=== PATIENT | female | born 1955 | race African-American/Black ===

== ENCOUNTER 2022-06-09 09:13 | Observation (INO) ==
[2022-06-09 10:36] LABS: Albumin 3.9 G/DL (3.4-5.0); Bilirubin,Total 0.8 MG/DL (0.20-1.00); Calcium 9.4 MG/DL (8.5-10.1); Osmolality,Calculated 265.2 MOS/KG (273-304); Total Protein 7.8 G/DL (6.4-8.2)
[2022-06-09 10:39] LABS: Potassium 2.3 MMOL/L (3.5-5.1)
[2022-06-09] MEDS ORDERED: POTASSIUM CHLORIDE 20 MEQ TABLET PO STA (11:25)
[2022-06-09] MEDS ORDERED: SODIUM CHLOR 0.9% KCL 20 MEQ 20 MEQ/1,000 ML BAG IV SCH (12:00)
[2022-06-09] MEDS: POTASSIUM CHLORIDE RIDER 10 MEQ/100 ML PREMIX IV SCH ×2 (12:16→14:02)
[2022-06-09 12:24] LABS: Eosinophils % 0.5 % (0.00-10.9); Hematocrit 38.9 VOL% (35.7-47.0); Immature Granulocytes % 0.5 %; Immature Granulocytes Absolute 0.02 #; Lymphocytes # 1.3 10*3/uL (1.4-4.0); Lymphocytes % 31.5 % (21.3-54.2); Mean Corpuscular HGB Conc 33.4 GM/DL (32-36); Mean Corpuscular Volume 90.3 FL (87-102); Monocytes # 0.2 10*3/uL (0.11-0.8); Monocytes % 5.1 % (1.7-12.7); Neutrophils % 61.4 % (38.7-73.9); Platelet Count 327 T/CUMM (130-400); Red Blood Count 4.31 MC/CUMM (3.8-5.5); Red Cell Distribution Width 14.5 % (9.3-17.3); White Blood Count 4.1 T/CUMM (4-12)
[2022-06-09] MEDS ORDERED: MAGNESIUM SULF RIDER 2 GM/50 ML PREMIX IV ONE (12:57)
[2022-06-09] MEDS ORDERED: DOCUSATE SODIUM 100 MG CAPSULE PO PRN (13:20)
[2022-06-09] MEDS ORDERED: hydrALAZINE 20 MG/1 ML VIAL IV PRN (13:20)
[2022-06-09] MEDS ORDERED: GLUCAGON 1 MG VIAL IM PRN (13:20)
[2022-06-09] MEDS ORDERED: DEXTROSE 10% 250 ML BAG IV PRN (13:20)
[2022-06-09] MEDS ORDERED: ONDANSETRON 4 MG/2 ML VIAL IV PRN (13:20)
[2022-06-09] MEDS ORDERED: traZODone 50 MG TABLET PO PRN (13:28)
[2022-06-09] MEDS: GABAPENTIN 300 MG CAPSULE PO SCH ×2 (15:33→20:25)
[2022-06-09] MEDS: SODIUM CHLOR 0.9% KCL 40 MEQ 40 MEQ/1,000 ML BAG IV SCH (15:34)
[2022-06-09] MEDS: METHOCARBAMOL 500 MG TABLET PO PRN ×2 (15:40→20:25)
[2022-06-09 19:47] LABS: Bilirubin,Urine Negative (Negative); Blood, Urine Small mg/dL (Negative); Glucose,Urine (UA) Negative (Negative); Ketones,Urine Negative (Negative); Nitrite,Urine Negative (Negative); Protein,Urine Negative (Negative); Urine Appearance Clear (Clear); Urine Color Yellow (Yellow); Urine Specific Gravity 1.015 (1.001-1.035); Urine Urobilinogen 0.2 eU/dL (<2.0)
[2022-06-09 19:50] LABS: Bacteria,Urine Occasional /HPF (Few); RBC,Urine 6 /HPF (0-4); Squamous Epithelial Cell,Urine Few /HPF (0-10)
[2022-06-09] MEDS: HYDROXYCHLOROQUINE 200 MG TABLET PO SCH (20:25)
[2022-06-09] MEDS: azaTHIOprine 50 MG TABLET PO SCH (20:25)
[2022-06-10] MEDS: SODIUM CHLOR 0.9% KCL 40 MEQ 40 MEQ/1,000 ML BAG IV SCH (05:15)
[2022-06-10 06:33] LABS: Eosinophils # 0.1 10*3/uL (0.0-0.87); Eosinophils % 1.6 % (0.00-10.9); Hematocrit 37.2 VOL% (35.7-47.0); Hemoglobin 12.4 GM/DL (12.0-16.0); Immature Granulocytes % 0.3 %; Immature Granulocytes Absolute 0.01 #; Lymphocytes # 1.3 10*3/uL (1.4-4.0); Lymphocytes % 40.6 % (21.3-54.2); Mean Corpuscular HGB Conc 33.3 GM/DL (32-36); Mean Corpuscular Volume 90.1 FL (87-102); Mean Platelet Volume 8.8 FL (9.6-12.0); Monocytes # 0.2 10*3/uL (0.11-0.8); Monocytes % 5.8 % (1.7-12.7); Neutrophils % 50.7 % (38.7-73.9); Platelet Count 353 T/CUMM (130-400); Red Blood Count 4.13 MC/CUMM (3.8-5.5); Red Cell Distribution Width 14.5 % (9.3-17.3); White Blood Count 3.1 T/CUMM (4-12)
[2022-06-10 07:01] LABS: Calcium 9.2 MG/DL (8.5-10.1); Osmolality,Calculated 269.8 MOS/KG (273-304); Potassium 3.1 MMOL/L (3.5-5.1); Risk Ratio 1.83; Thyroid Stimulating Hormone 1.25 uIU/ml (0.358-3.74); VLDL Cholesterol 12.8 MG/DL
[2022-06-10 08:14] VITALS: BP 157/98
[2022-06-10] MEDS ORDERED: MAGNESIUM SULF RIDER 2 GM/50 ML PREMIX IV ONE (08:30)
[2022-06-10] MEDS ORDERED: POTASSIUM CHLORIDE 20 MEQ TABLET PO ONE (08:30)
[2022-06-10] MEDS: GABAPENTIN 300 MG CAPSULE PO SCH (08:50)
[2022-06-10] MEDS: azaTHIOprine 50 MG TABLET PO SCH (08:50)
[2022-06-10] MEDS: HYDROXYCHLOROQUINE 200 MG TABLET PO SCH (08:50)
[2022-06-10] MEDS ORDERED: CHOLECALCIFEROL 1,000 UNIT TABLET PO SCH (09:00)
[2022-06-10] MEDS ORDERED: CYANOCOBALAMIN 500 MCG TABLET PO SCH (09:00)
[2022-06-10] MEDS ORDERED: PANTOPRAZOLE 40 MG TABLET PO SCH (09:00)
== END 2022-06-10 11:26 | disposition home or self-care (01) ==
LOC: N.ED 09:13 → N.EDINP 09:13 → SUATTDRO 13:20 → N.5E 14:26
PROVIDERS: ADMIT Internal Medicine; ATTEND Internal Medicine